=== PATIENT | male | born 1950 | race Caucasian/White ===

== ENCOUNTER 2024-12-08 17:59 | Inpatient (IN) | payer MEDICARE, OTHER ==
[~2024-12-08] VITALS: Ht 177.8 cm; Wt 63.0 kg
[~2024-12-08 17:59] MED LIST: ACET-2247 PO; ALBU2.5V39 NEB; CEFT1VIA65 IV; HEPA50009 SQ; IPRA0.2S49 NEB; IPRA4AER IH; MAGN-169 PO; PANT-31 PO; PRED-554 PO
[2024-12-08 18:36] LABS: COVID AG,FIA SOURCE NASAL SWAB
[2024-12-08 18:38] LABS: PLATELET COUNT (AUTO) 290 K/uL (150-450); RED BLOOD CELL COUNT(AUTO) 4.92 MIL/uL (4.50-5.90); RED CELL DISTRIBUTION WIDTH 14.4 % (11.5-14.5); WHITE BLOOD COUNT (AUTO) 7.6 K/uL (4.5-11.0)
[2024-12-08 18:45] LABS: CALCIUM, TOTAL 8.8 mg/dL (8.8-10.5); CREATININE 0.99 mg/dL (0.60-1.30); GLOMERULAR FILTR. RATE CALC > 60 mL/min (>60); GLUCOSE,RANDOM 95 mg/dL (70-110); SODIUM SERUM 141 mmol/L (136-145); UREA NITROGEN, BLOOD 11 mg/dL (7-18)
[2024-12-08 18:55] LABS: SARS-COV2 (COVID) ANTIGEN,FIA Negative (Negative)
[2024-12-08] MEDS: CLOTRIMAZOLE 1% 15 GM CREAM TP ONE (19:45)
[2024-12-08 19:50] LABS: APPEARANCE,URINE CLEAR (CLEAR); GLUCOSE, URINE (UA) NEGATIVE (NEGATIVE); LEUKOCYTE ESTERASE ,URINE NEGATIVE (NEGATIVE); NITRATE,URINE NEGATIVE (NEGATIVE); OCCULT BLOOD,URINE NEGATIVE (NEGATIVE); PH,URINE DRUG SCREEN 7.0 (5.0-8.0); SPECIFIC GRAVITIY, URINE 1.013 (1.003-1.030)
[2024-12-08 19:56] LABS: ALCOHOL, URINE DRUG SCREEN NEGATIVE (NEGATIVE); AMPHET/METH SCREEN,URINE NEGATIVE (NEGATIVE); BARBITURATE SCREEN, URINE NEGATIVE (NEGATIVE); CANNABINOID SCREEN,URINE NEGATIVE (NEGATIVE); COCAINE SCREEN,URINE NEGATIVE (NEGATIVE); METHADONE SCREEN, URINE NEGATIVE (NEGATIVE)
[2024-12-09] MEDS: ZOLPIDEM TARTRATE 10 MG TABLET PO PRN (01:05)
[2024-12-09 05:32] LABS: PLATELET COUNT (AUTO) 279 K/uL (150-450); RED BLOOD CELL COUNT(AUTO) 4.77 MIL/uL (4.50-5.90); RED CELL DISTRIBUTION WIDTH 14.1 % (11.5-14.5); WHITE BLOOD COUNT (AUTO) 6.9 K/uL (4.5-11.0)
[2024-12-09 06:11] LABS: ASPARTATE AMINOTRANSFERASE 24 U/L (15-37); CALCIUM, TOTAL 8.5 mg/dL (8.8-10.5); CHOL/HDL RATIO 4.5 (4.2-7.3); CREATININE 0.78 mg/dL (0.60-1.30); GLOMERULAR FILTR. RATE CALC > 60 mL/min (>60); GLUCOSE,RANDOM 98 mg/dL (70-110); LDL CHOL (CALC.) 101 mg/dL (0-130); SODIUM SERUM 142 mmol/L (136-145); TOTAL PROTEIN, SERUM 6.8 g/dL (6.4-8.2); UREA NITROGEN, BLOOD 10 mg/dL (7-18)
[2024-12-09] MEDS: ACETAMINOPHEN 500 MG TABLET PO ONE (18:52)
[2024-12-11 10:30] VITALS: O2SAT 94
[2024-12-11] MEDS ORDERED: PROMETHAZINE HCL 25 MG TABLET PO PRN (10:30)
[2024-12-11] MEDS ORDERED: GuaiFENesin/D-METHORPHAN [SUGAR-FREE] 200-20MG/10 ML SYRUP UDCUP PO PRN (10:30)
[2024-12-11] MEDS ORDERED: MAGNESIUM HYDROXIDE SUSPENSION 30 ML UDCUP PO PRN (10:30)
[2024-12-11] MEDS ORDERED: LOPERAMIDE HCL 2 MG CAPSULE PO PRN (10:30)
[2024-12-11] MEDS ORDERED: TUBERCULIN, PURIFIED PROTEIN DERIVATIVE 5 TU/0.1 ML SYRINGE ID ONE (10:30)
[2024-12-11] MEDS ORDERED: MAG HYDROX/ALUMINUM HYD/SIMETH ES 30 ML SUSPENSION UDCUP PO PRN (10:30)
[2024-12-11 12:42] VITALS: BP 119/73; PULSE 85; RESP 16; TEMP 97.3; O2SAT 98
[2024-12-11 13:32] VITALS: BP 119/73; PULSE 85; RESP 16; TEMP 97.3; O2SAT 98
[2024-12-11] MEDS: ACETAMINOPHEN 325 MG TABLET PO PRN (13:32)
[2024-12-11 14:32] VITALS: RESP 16
[2024-12-11] MEDS ORDERED: OxyCODONE HCL 5 MG IR TABLET PO PRN (15:00)
[2024-12-11] MEDS ORDERED: IPRATROPIUM BROMIDE 0.5 MG/2.5 ML NEB SOLUTION NEB PRN (15:00)
[2024-12-11] MEDS ORDERED: NICOTINE POLACRILEX 2 MG LOZENGE PO PRN (15:00)
[2024-12-11] MEDS ORDERED: ALBUTEROL SULFATE 2.5 MG/0.5 ML NEB SOLUTION NEB PRN (15:00)
[2024-12-11] MEDS ORDERED: MELA5TAB40 PO (16:11)
[2024-12-11] MEDS ORDERED: NALT50TA33 PO (16:11)
[2024-12-11] MEDS ORDERED: FLUO-341 PO (16:11)
[2024-12-11] MEDS ORDERED: DIVA-153 PO (16:11)
[2024-12-11] MEDS ORDERED: GABA-1181 PO (16:11)
[2024-12-11] MEDS ORDERED: OLAN5TAB94 PO (16:11)
[2024-12-11] MEDS: OLANZapine 5 MG RAPDIS TABLET PO SCH (16:36)
[2024-12-11] MEDS: GABAPENTIN 300 MG CAPSULE PO SCH (16:36)
[2024-12-11] MEDS: DIVALPROEX SODIUM 500 MG ER TABLET PO SCH (16:36)
[2024-12-11] MEDS: THIAMINE 100 MG TABLET PO SCH (16:36)
[2024-12-11 20:22] VITALS: BP 129/60; PULSE 76; RESP 18; TEMP 98.5; O2SAT 97
[2024-12-11] MEDS: MELATONIN 5 MG TABLET PO SCH (20:36)
[2024-12-12 08:22] VITALS: BP 151/75; PULSE 71; RESP 18; TEMP 98; O2SAT 94
[2024-12-12] MEDS: NALTREXONE HCL 50 MG TABLET PO SCH (09:33)
[2024-12-12] MEDS: PANTOPRAZOLE SODIUM 40 MG DR TABLET PO SCH (09:33)
[2024-12-12] MEDS: FLUTICASONE PROPIONATE 50 MCG/SPRAY 16 GM NASAL SPRAY NASAL SCH (09:34)
[2024-12-12] MEDS: MULTIVITAMINS WITH MINERALS, THERAPEUTIC TABLET PO SCH (09:34)
[2024-12-12] MEDS: FOLIC ACID 1 MG TABLET PO SCH (09:34)
[2024-12-12 10:17] LABS: CHOL/HDL RATIO 4.9 (4.2-7.3); LDL CHOL (CALC.) 99.0 mg/dL (0-130)
[2024-12-12 13:30] VITALS: BP 139/83; RESP 18; O2SAT 96
[2024-12-12 14:13] VITALS: BP 124/66; PULSE 72; RESP 18
[2024-12-12] MEDS: PNEUMOCOCCAL VACCINE POLYVALENT 0.5 ML SYRINGE [PPSV23] IM. ONE (14:13)
[2024-12-12 15:13] VITALS: RESP 18
== END 2024-12-12 16:00 | DRG 885 ==
LOC: EMS 18:12 → B2X 12-11 09:22
PROVIDERS: ADMIT Psychiatry & Neurology Psychiatry; ATTEND Psychiatry & Neurology Psychiatry
PROC: GZ56ZZZ Individual Psychotherapy, Supportive (ICD-10-PCS; principal; 2024-12-11)
DX: F29 Unspecified psychosis not due to a substance or known physiological condition (principal); E78.5 Hyperlipidemia, unspecified; Z20.822 Contact with and (suspected) exposure to COVID-19; F17.210 Nicotine dependence, cigarettes, uncomplicated; K21.9 Gastro-esophageal reflux disease without esophagitis; J44.9 Chronic obstructive pulmonary disease, unspecified; F25.9 Schizoaffective disorder, unspecified; F31.9 Bipolar disorder, unspecified; I10 Essential (primary) hypertension; K59.00 Constipation, unspecified; G47.00 Insomnia, unspecified; F10.90 Alcohol use, unspecified, uncomplicated; Y90.9 Presence of alcohol in blood, level not specified; G62.9 Polyneuropathy, unspecified; I73.9 Peripheral vascular disease, unspecified; Z79.899 Other long term (current) drug therapy; Z89.611 Acquired absence of right leg above knee; Z63.9 Problem related to primary support group, unspecified; Z59.9 Problem related to housing and economic circumstances, unspecified; Z65.3 Problems related to other legal circumstances; Z55.9 Problems related to education and literacy, unspecified; Z74.01 Bed confinement status
CPT/HCPCS: 80048; 80053; 80061; 80307; 81003; 83036; 84436; 84439; 84443; 85025; 86592; 87081; 99285; G0480